=== PATIENT | male | born 1950 | race African-American/Black ===

== ENCOUNTER 2020-05-13 11:50 | Inpatient (IN) | payer MEDICARE, MEDICAID ==
[~2020-05-13] VITALS: Ht 182.9 cm; Wt 66.2 kg
[2020-05-13] MEDS ORDERED: PIPERACILLIN/TAZ 3.375G PREMIX 50 ML IV ONE (13:15)
[2020-05-13] MEDS ORDERED: VANCOMYCIN 1 G PREMIX 200 ML IV ONE (13:15)
[2020-05-13] MEDS ORDERED: SODIUM CHLORIDE 0.9% 1000ML BAG (SEPSIS BOLUS) IV ONE (13:15)
[2020-05-13] MEDS ORDERED: ACETAMINOPHEN 325MG TABLET PO ONE (13:15)
[2020-05-13] MEDS ORDERED: KETOROLAC 15MG/ML VIAL IV ONE (13:30)
[2020-05-13 14:10] LABS: BASOPHILS % 0.4 % (0.0-2.0); EOSINOPHILS % 0.4 % (0.0-5.0); HEMATOCRIT. 37.8 % (42.0-52.0); HEMOGLOBIN. 12.6 g/dL (14.0-18.0); LYMPHOCYTES % 20.6 % (20.0-50.0); MEAN CORPUSCULAR HEMOGLOBIN 31.2 pg (28.0-32.0); MEAN CORPUSCULAR VOLUME 93.8 fL (80.0-94.0); MEAN PLATELET VOLUME 10.8 fl (7.4-10.4); MONOCYTES % 5.6 % (2.0-8.0); PLATELET 117 x1000/uL (130-400); RED BLOOD CELL COUNT 4.03 mill/uL (4.7-6.1); RED CELL DISTRIBUTION WIDTH 14.6 % (11.6-14.6)
[2020-05-13 14:17] LABS: CHLORIDE 107 mEq/L (98-107)
[2020-05-13 14:18] LABS: PROTHROMBIN TIME 10.8 sec (9.6-11.0)
[2020-05-13 16:08] LABS: CLARITY URINE CLEAR (CLEAR); COLOR URINE YELLOW (YELLOW); KETONES URINE NEGATIVE (NEGATIVE); LEUKOCYTE ESTERASE URINE NEGATIVE (NEGATIVE); NITRITE URINE NEGATIVE (NEGATIVE); OCCULT BLOOD URINE 1+ (NEGATIVE); PROTEIN URINE NEGATIVE (NEGATIVE); UROBILINOGEN URINE 0.2 E.U./dL (0.2-1.0)
[2020-05-13 18:04] VITALS: BP 133/61
[2020-05-13] MEDS ORDERED: CLONIDINE 0.1MG TABLET PO PRN (18:15)
[2020-05-13] MEDS ORDERED: ONDANSETRON HCL 4MG/2ML INJ IV PRN (18:15)
[2020-05-13] MEDS: ENOXAPARIN 40MG/0.4ML SYR SUBCUT SCH (18:49)
[2020-05-13 20:00] VITALS: BP 143/58
[2020-05-13] MEDS ORDERED: METO-539 PO (20:17)
[2020-05-13] MEDS ORDERED: FOLI-43 PO (20:17)
[2020-05-13] MEDS ORDERED: BENA40TA9 PO (20:17)
[2020-05-13] MEDS ORDERED: SIMV-43 PO (20:17)
[2020-05-13] MEDS ORDERED: TAMS-11 PO (20:17)
[2020-05-13] MEDS: VANCOMYCIN 750 MG PREMIX 150 ML IV SCH (21:36)
[2020-05-13] MEDS: ATORVASTATIN CALCIUM 20MG TABLET PO SCH (21:36)
[2020-05-13] MEDS ORDERED: CEFAZOLIN SODIUM 1000MG/VIAL IV SCH (22:00)
[2020-05-13] MEDS: ACETAMINOPHEN 325MG TABLET PO PRN (22:10)
[2020-05-13] MEDS: CEFAZOLIN 1000MG PREMIX 50 ML IV SCH (22:59)
[2020-05-14] VITALS: BP 169/78
[2020-05-14 04:00] VITALS: BP 192/88
[2020-05-14] MEDS: CEFAZOLIN 1000MG PREMIX 50 ML IV SCH (05:04)
[2020-05-14 08:00] VITALS: BP 182/80
[2020-05-14] MEDS ORDERED: BENAZEPRIL 10MG TABLET PO SCH (09:00)
[2020-05-14] MEDS ORDERED: METOPROLOL TARTRATE 50MG TABLET PO SCH (09:00)
[2020-05-14] MEDS: TAMSULOSIN HCL 0.4MG SR CAPSULE PO SCH (09:05)
[2020-05-14] MEDS: FOLIC ACID 1MG TABLET PO SCH (09:05)
[2020-05-14] MEDS: VANCOMYCIN 750 MG PREMIX 150 ML IV SCH ×2 (09:06→20:52)
[2020-05-14] MEDS: ACETAMINOPHEN 325MG TABLET PO PRN ×2 (09:48→18:55)
[2020-05-14 12:00] VITALS: BP 168/74
[2020-05-14 16:00] VITALS: BP 165/74
[2020-05-14] MEDS: ENOXAPARIN 40MG/0.4ML SYR SUBCUT SCH (17:14)
[2020-05-14 20:00] VITALS: BP 172/82
[2020-05-14] MEDS: ATORVASTATIN CALCIUM 20MG TABLET PO SCH (20:52)
[2020-05-14] MEDS: CLONIDINE 0.1MG TABLET PO PRN (21:44)
[2020-05-15] VITALS: BP 130/79
[2020-05-15 04:00] VITALS: BP 175/77
[2020-05-15] MEDS: CLONIDINE 0.1MG TABLET PO PRN (06:15)
[2020-05-15 08:00] VITALS: BP 189/85
[2020-05-15] MEDS: TAMSULOSIN HCL 0.4MG SR CAPSULE PO SCH (08:25)
[2020-05-15] MEDS: FOLIC ACID 1MG TABLET PO SCH (08:25)
[2020-05-15] MEDS: VANCOMYCIN 750 MG PREMIX 150 ML IV SCH (08:29)
[2020-05-15] MEDS: ACETAMINOPHEN 325MG TABLET PO PRN ×2 (08:29→14:33)
[2020-05-15] MEDS ORDERED: BENAZEPRIL 10MG TABLET PO SCH (09:00)
[2020-05-15 11:35] LABS: CHLORIDE 106 mEq/L (98-107)
[2020-05-15 12:00] VITALS: BP 186/80
[2020-05-15] MEDS ORDERED: HYDRALAZINE HCL 50MG TABLET PO NR (12:00)
[2020-05-15 13:23] VITALS: BP 159/77
[2020-05-15] MEDS ORDERED: VANCOMYCIN 1 G PREMIX 200 ML IV SCH (15:00)
[2020-05-15] MEDS ORDERED: HYDRALAZINE HCL 50MG TABLET PO SCH (21:00)
== END 2020-05-15 14:48 | disposition home or self-care (01) | DRG 603 ==
LOC: ER 11:50 → ENRESERV 17:09 → 6EST 17:50
PROVIDERS: ADMIT Internal Medicine; ATTEND Internal Medicine
DX: L03.116 Cellulitis of left lower limb (principal); I10 Essential (primary) hypertension; D64.9 Anemia, unspecified; N40.0 Benign prostatic hyperplasia without lower urinary tract symptoms; R00.1 Bradycardia, unspecified; Z79.899 Other long term (current) drug therapy; R23.4 Changes in skin texture
CPT/HCPCS: 36415; 71045; 73590; 80048; 80053; 80202; 81003; 83605; 84145; 85025; 93005; 93923; 93970; 99285; J0690; J1650; J1885; J2543; J3370; J7030